=== PATIENT | female | born 1990 | race African-American/Black ===

== ENCOUNTER 2025-03-22 08:50 | Emergency (ER) | payer OTHER ==
[~2025-03-22] VITALS: Ht 175.3 cm; Wt 79.7 kg
[2025-03-22 08:54] VITALS: TEMP 97.3
[2025-03-22 09:37] LABS: BASO % 0.4 % (0.0-1.0); EOS # 0.1 10^3/uL (0.0-0.5); EOS % 1.2 % (0.0-3.0); HEMATOCRIT 40.1 % (36.0-47.0); HEMOGLOBIN 12.3 g/dl (12.0-15.5); LYMPH # 1.7 10^3/uL (1.5-5.0); LYMPH % 34.5 % (24.0-44.0); MEAN CORPUSCULAR HEMOGLOBIN 27.5 pg (27.0-33.0); MEAN CORPUSCULAR HGB CONC 30.7 g/dl (32.0-36.5); MEAN CORPUSCULAR VOLUME 89.7 fl (80.0-96.0); MONO # 0.3 10^3/uL (0.0-0.8); MONO % 6.6 % (2.0-8.0); NEUTROPHILS # 2.9 10^3/uL (1.5-8.5); NEUTROPHILS % 57.1 % (36.0-66.0); PLATELET COUNT, AUTOMATED 267 10^3/uL (150-450); RED BLOOD COUNT 4.47 10^6/uL (4.00-5.40)
[2025-03-22 09:51] LABS: KETONE, URINE AUTO RFX NEGATIVE (NEGATIVE); NITRITE, URINE AUTO RFX NEGATIVE (NEGATIVE); RBC, URINE AUTO RFX 0 /HPF (0-3); SQUAM EPITHELIAL CELL UR AURFX 0 /HPF (0-6); WBC, URINE AUTO RFX 0 /HPF (0-3)
[2025-03-22 10:00] LABS: BLOOD UREA NITROGEN 7 MG/DL (9-23); CALCIUM LEVEL 8.9 MG/DL (8.5-10.1); CARBON DIOXIDE LEVEL 29 MMOL/L (20-31); CHLORIDE LEVEL 104 MMOL/L (98-107); CREATININE FOR GFR 0.63 MG/DL (0.55-1.30); GLOMERULAR FILTRATION RATE > 90.0 (>60); GLUCOSE, FASTING 84 MG/DL (60-100); POTASSIUM SERUM 3.8 MMOL/L (3.5-5.1); SODIUM LEVEL 140 MMOL/L (136-145)
[2025-03-22 10:04] LABS: LEUKOCYTE ESTERASE UR AUTO RFX TRACE (NEGATIVE)
[2025-03-22 10:18] LABS: HCG, SERUM QUALITATIVE NEGATIVE (NEGATIVE)
[2025-03-22 13:34] VITALS: BP 129/73; O2SAT 100
== END 2025-03-22 13:35 | disposition home or self-care (01) ==
LOC: M ED 08:50
DX: R10.9 Unspecified abdominal pain (principal)

== ENCOUNTER 2025-08-06 07:56 | Emergency (ER) | payer OTHER ==
[~2025-08-06] VITALS: Ht 175.3 cm; Wt 78.3 kg
[2025-08-06 09:59] LABS: KETONE, URINE AUTO RFX NEGATIVE (NEGATIVE); LEUKOCYTE ESTERASE UR AUTO RFX NEGATIVE (NEGATIVE); MUCUS, URINE RFX SMALL (NEGATIVE); NITRITE, URINE AUTO RFX NEGATIVE (NEGATIVE); RBC, URINE AUTO RFX 1 /HPF (0-3); SQUAM EPITHELIAL CELL UR AURFX 1 /HPF (0-6); WBC, URINE AUTO RFX 0 /HPF (0-3)
[2025-08-06 11:22] LABS: Trichomonas vaginalis (AMP) NOT DETECTED (NEGATIVE)
[2025-08-06] MEDS: VITAMIN A & D OINTMENT 42.5GM TOP ONE (11:22)
[2025-08-06 11:45] LABS: GC DNA AMPLIFICATION NEGATIVE (NEGATIVE)
[2025-08-06 12:07] VITALS: BP 113/72; TEMP 97.9; O2SAT 100
== END 2025-08-06 12:12 | disposition home or self-care (01) ==
LOC: M ED 09:19
DX: N76.89 Other specified inflammation of vagina and vulva (principal)